=== PATIENT | female | born 1970 | race Caucasian/White ===

== ENCOUNTER 2019-05-04 19:01 | Inpatient (IN) ==
--- NOTE | 2019-05-04 20:00 | XRay Report ---
XR chest 1V portable CLINICAL HISTORY: 49 years-old Female presenting with sob, abnormal labs, eval for pna. TECHNIQUE: Portable upright AP view of the chest was obtained. COMPARISON: None. FINDINGS: Cardiac silhouette top normal in size. Elevation of the right hemidiaphragm. No focal opacity. Trace blunting of the right costophrenic angle. No large effusion or pneumothorax. Osseous structures meka l. Upper abdomen normal. IMPRESSION: 1. Blunting of the right costophrenic angle. A trace right pleural effusion cannot be excluded. Othe rwise no acute cardiopulmonary disease. PA and lateral views could be considered for further assessme nt if there is concern. Electronically signed by: Estrada Luz M.D. 05/04/2019 7:58 PM
[2019-05-04 20:21] LABS: Alanine Aminotransferase 25 U/L (12-78); Albumin Level 3.9 gm/dl (3.4-5.0); Aspartate Aminotransferase 25 U/L (15-37); BUN Creatinine Ratio 17.1 (10-20); Blood Urea Nitrogen 12 mg/dl (7-18); Calcium 8.8 mg/dl (8.5-10.1); Carbon Dioxide 26 mmol/L (21-32); Chloride 109 mmol/L (98-107); Creatinine Clr Calc Pharmacy 112.9 ml/min; Est GFR (African American) 119.6; Est GFR (Non-African American) 103.2; Glucose 125 mg/dl (70-99); Partial Thromboplastin Ratio 0.8; Partial Thromboplastin Time 21.9 Seconds (21.0-31.0); Potassium 3.9 mmol/L (3.5-5.1); Sodium 140 mmol/L (136-145)
[2019-05-04 20:25] LABS: Pregnancy Test, Serum Negative (Negative)
[2019-05-04 20:26] LABS: Albumin Globulin Ratio 0.9 (0.9-2); Alkaline Phosphatase 84 U/L (45-117); Bilirubin,Total 0.8 mg/dl (0.2-1); Globulin 4.1 gm/dl (2.5-4.0); Troponin I < 0.015 ng/ml (0-0.045)
[2019-05-04 20:37] LABS: Hematocrit (blood only) 28.8 % (37-47); Hemoglobin 7.8 g/dL (12.0-16.0); Mean Corpuscular Hemoglobin 18.1 pg (25-34); Mean Corpuscular Hgb Conc 27.1 g/dL (32-36); Mean Corpuscular Volume 66.7 fL (80-100); Mean Platelet Volume 8.3 fL (7.4-10.4); Platelet Count 284 K/uL (130-400); RDW Coefficient of Variation 17.9 % (11.5-14.5); RDW Standard Deviation 43.3 fL (36.4-46.3); Red Blood Count 4.32 M/uL (4.2-5.4); White Blood Count 7.41 K/uL (4.8-10.8)
[2019-05-04 20:40] LABS: Anisocytosis Present; Basophils # (auto) 0.09 K/uL (0-0.2); Basophils % (auto) 1.2 %; Eosinophils # (auto) 0.18 K/uL (0-0.5); Eosinophils % (auto) 2.4 %; Hypochromasia Present; Immature Granulocytes # (auto) 0.02 K/uL (0.00-0.02); Immature Granulocytes % (auto) 0.3 %; Lymphocytes # (auto) 2.11 K/uL (1.2-3.4); Lymphocytes % (auto) 28.5 %; Microcytosis Present; Monocytes # (auto) 0.45 K/uL (0.11-0.59); Monocytes % (auto) 6.1 %; Neutrophils # (auto) 4.56 K/uL (1.4-6.5); Neutrophils % (auto) 61.5 %; Ovalocytes 1+; Polychromasia 1+
--- NOTE | 2019-05-04 22:00 | History & Physical Report ---
Date of Service May 04, 2019 Assessment & Plan (1) Anemia: (2) Heme positive stool: Please refer to Dr. Kc's addendum for assessment and plan. History of Present Illness Chief Complaint: abnormal labs Primary Care Provider: NO PCP 49-year-old female who was sent to the ED for evaluation of abnormal labs. Patient is currently at [facility] for alcohol dependence. Patient arrived there on 04/30. She had routine labs drawn today to demonstrate anemia and she was sent to the ED. Patient reports that for the past several months, she has noted some exertional shortness of breath and lightheadedness however she attributed this to her chronic alcohol use. No chest pain or syncopal events. Patient reports she has frequent vomiting due to history of gastric bypass and that she eats too much food too quickly. She reports she has vomiting at least 2 times a week. She denies any hematemesis or coffee-ground emesis. No abdominal pain. She denies diarrhea, bright red bleeding per rectum, dark tarry stools. Patient reports a history of chronic anemia due to heavy menses, she is unsure of her baseline hemoglobin. She has been on iron pills in the past. No other recent illnesses, fevers, chills. She denies any urinary symptoms. Patient reports a history of Nur's esophagus on EGD from 2016. She denies heavy NSAID use. In the ED, Hgb is found to be 7.8 and rectal exam reveals guaiac positive stools. Patient is hemodynamically stable. Allergies Allergy/AdvReac Type Severity Reaction Status Date / Time No Known Allergies Allergy Verified 05/04/19 20:22 Home Medications Home Medications Medication Instructions Recorded Confirmed Type acetaminophen 650 mg PO QID PRN 05/04/19 05/04/19 History alum-mag hydroxide-simeth [Maalox 30 ml PO TID PRN 05/04/19 05/04/19 History Advanced] clonidine HCl 0.1 mg PO BID PRN 05/04/19 05/04/19 History folic acid 1 mg PO DAILY 05/04/19 05/04/19 History hydroxyzine pamoate [Vistaril] 50 mg PO TID PRN 05/04/19 05/04/19 History ibuprofen 600 mg PO QID PRN 05/04/19 05/04/19 History levetiracetam [Keppra] 500 mg PO BID 05/04/19 05/04/19 History loperamide [Imodium A-D] 2 mg PO DIRECTED PRN 05/04/19 05/04/19 History magnesium hydroxide [Milk of 30 ml PO DAILY PRN 05/04/19 05/04/19 History Magnesia] melatonin 5 mg PO HS PRN 05/04/19 05/04/19 History multivitamin 1 tab PO DAILY 05/04/19 05/04/19 History naloxone 0.4 mg IM DIRECTED PRN 05/04/19 05/04/19 History promethazine 25 mg PO QID PRN 05/04/19 05/04/19 History thiamine HCl (vitamin B1) 100 mg PO DAILY 05/04/19 05/04/19 History Past Med/Surg History Medical History Type 2 diabetes, diet controlled (Chronic) Barretts esophagus (Chronic) Alcoholism (Chronic) Anemia (Chronic) Surgical History History of gastric bypass (Chronic) Family History Brother Esophageal cancer Mother Diabetes Social History Preferred Language: [place] Communication Ability: Effective 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: No Beliefs That Will Affect Care: None Current Living Situation: Alone Feels Safe at Home: Yes Safety Concerns: Feels Safe At This Time Smoking Status: Current every day smoker Tobacco Type: cigarettes ; Cigarettes Per Day: 4 ; Hx Alcohol Use: Yes Alcohol type: beer and hard liquor Hx Substance Use: No Review of Systems Review of Systems: ROS per HPI, all other systems reviewed and negative Physical Exam Constitutional: WD/WN, vitals as above Eyes: PERRL, conjunctivae normal, anicteric sclerae ENMT: external ear and nose normal, oropharynx normal Respiratory: normal respiratory effort, lungs clear to auscultation Cardiovascular: Rate/Rhythm: regular rate and regular rhythm Vessels: normal peripheral pulses Extremities: no edema Gastrointestinal (Abdomen): normal bowel sounds, soft, nontender, no hepatosplenomegaly Musculoskeletal: no cyanosis or clubbing, extremities motor strength 5/5 Skin: no rashes, warm and dry Neurologic: PERRL, EOMI, accommodation nl, no face palsy, no dysarthria Psychiatric: Orientation: alert and oriented x 3 Affect: + tearful affect Results & Data Vital Signs (Past 12 Hours) Vital Signs Temp Pulse Resp BP Pulse Ox 05/04/19 21:00 80 24 157/89 H 97 05/04/19 20:01 90 17 164/95 H 97 05/04/19 19:42 100 05/04/19 19:04 36.6 C 96 H 16 193/79 H 100 Laboratory Results Short CBC 05/04/19 Range/Units 19:51 WBC 7.41 (4.8-10.8) K/uL Hgb 7.8 L (12.0-16.0) g/dL Hct 28.8 L (37-47) % Plt Count 284 (130-400) K/uL BMP 05/04/19 19:51 Sodium 140 Potassium 3.9 Chloride 109 H Carbon Dioxide 26 BUN 12 Creatinine 0.70 Glucose 125 H Calcium 8.8 Cardiac Enzymes 05/04/19 Range/Units 19:51 Troponin I < 0.015 (0-0.045) ng/ml Liver Function 05/04/19 Range/Units 19:51 Total Bilirubin 0.8 (0.2-1) mg/dl AST 25 (15-37) U/L ALT 25 (12-78) U/L Alkaline Phosphatase 84 (45-117) U/L Albumin 3.9 (3.4-5.0) gm/dl Diagnostic Findings CXR IMPRESSION: 1. Blunting of the right costophrenic angle. A trace right pleural effusion cannot be excluded. Otherwise no acute cardiopulmonary disease. PA and lateral views could be considered for further assessment if there is concern. Code Status & VTE Plan VTE Prophylaxis Plan VTE Prophylaxis will be ordered: Yes Supervising Physician Co-Signing Physician Notes IM ATTENDING : Patient seen and examined. History obtained from patient and records. Preceding documentation by LINDSAY Mata reviewed. FINAL ASSESSMENT AND PLAN as follows : Dizziness Multifactorial : Symptomatic anemia hx chronic anemia with baseline unknown to patient (likely secondary to heavy menses, iron absorption issues following gastric bypass) Patient gives history of exertional shortness of breath the last few months. Rule out cardiac dysfunction/pulmonary hypertension as cause of exertional S OB Hypertension, elevated secondary to anxiety Past history ACEI intake Occult GI bleed Multifactorial : hx Nur's esophagus, patient noncompliant with home PPI regimen hx hemorrhoids as per patient Alcohol abuse Ongoing tobacco abuse Medical telemetry Transfuse PRBC to maintain hemoglobin greater than 8 and/or for symptomatic anemia TTE RE exertional S OB Anemia work-up Retrieve recent outpatient hemoglobin result from [facility]. Outpatient [facility] GI work-up for occult GI bleed as per patient preference. Resume home PPI regimen for Nur's esophagus. Patient counseled to avoid NSAIDs. Resume prior home lisinopril Rx if BP uncontrolled. DT precautions continue Keppra alcohol withdrawal seizure prophylaxis initiated at [facility]. Ativan as needed for agitation related to alcohol withdrawal. ISS BG goal 1 40-1 80, may need basal insulin, check hemoglobin A1c Nicotine patch PRN DVT prophylaxis. SCDs RE occult GI bleed Full code
[2019-05-04 22:01] LABS: Magnesium 2.2 mg/dl (1.8-2.4); Thyroid Stimulating Hormone 1.17 uIu/ml (0.300-4.500)
--- NOTE | 2019-05-04 22:38 | Emergency Department Note ---
Entered by Lise Liu acting as a scribe for Wagner Wong MD History of Present Illness General Chief complaint: Abnormal Labs/Diagnostic Testing Stated complaint: LOW HEMOGLOBIN Source: patient Mode of arrival: ambulatory Limitations: no limitations History of Present Illness Onset (ago): day(s) 1 Radiation: non-radiation Pain Consistency: + constant Maximum Pain Intensity: 6 Relieved By: + none Exacerbated By: + none Associated symptoms: + shortness of breath; no cough (or cold symptoms) Treatments prior to arrival: none The patient is a 49 year old female who presents to the ED with complaints of abnormal lab results. She states she has been experiencing lightheadedness for "several months". Her symptoms are worse with standing and movement. For the past month, she has experienced some labored breathing. She was recently admitted to [facility] for a history of alcohol abuse and states she was placed on Librium and Valium. This morning, she had routine blood work and was told her Hemoglobin is low. She denies any recent bloody or black and tarry stools. She admits she has been anemic in the past from heavy menstrual periods. Her LMP was last month and heavy. She does not take daily blood thinners. She denies any recent cough or cold symptoms. Home Medications Home Medications Medication Instructions Recorded Confirmed Type acetaminophen 650 mg PO QID PRN 05/04/19 05/04/19 History alum-mag hydroxide-simeth [Maalox 30 ml PO TID PRN 05/04/19 05/04/19 History Advanced] clonidine HCl 0.1 mg PO BID PRN 05/04/19 05/04/19 History folic acid 1 mg PO DAILY 05/04/19 05/04/19 History hydroxyzine pamoate [Vistaril] 50 mg PO TID PRN 05/04/19 05/04/19 History ibuprofen 600 mg PO QID PRN 05/04/19 05/04/19 History levetiracetam [Keppra] 500 mg PO BID 05/04/19 05/04/19 History loperamide [Imodium A-D] 2 mg PO DIRECTED PRN 05/04/19 05/04/19 History magnesium hydroxide [Milk of 30 ml PO DAILY PRN 05/04/19 05/04/19 History Magnesia] melatonin 5 mg PO HS PRN 05/04/19 05/04/19 History multivitamin 1 tab PO DAILY 05/04/19 05/04/19 History naloxone 0.4 mg IM DIRECTED PRN 05/04/19 05/04/19 History promethazine 25 mg PO QID PRN 05/04/19 05/04/19 History thiamine HCl (vitamin B1) 100 mg PO DAILY 05/04/19 05/04/19 History Allergies Allergy/AdvReac Type Severity Reaction Status Date / Time No Known Allergies Allergy Verified 05/04/19 20:22 Past Med/Surg History Medical History Type 2 diabetes, diet controlled (Chronic) Barretts esophagus (Chronic) Alcoholism (Chronic) Anemia (Chronic) Surgical History History of gastric bypass (Chronic) Family History Brother Esophageal cancer Mother Diabetes Social History Preferred Language: Kosovan Feels Safe at Home: Yes Smoking Status: Current every day smoker Hx Alcohol Use: Yes (Recently admitted to [facility] for alcohol dependence on 04/30.) Review of Systems See HPI for pertinent positives & negatives. and A total of 10 systems reviewed and were otherwise negative Physical Exam Vital Signs Vital Signs - 24 hr 05/04/19 19:04 05/04/19 19:42 05/04/19 20:01 Temperature 36.6 C Temperature Source Oral Sepsis Recent Fever Within 48 Hours No Sepsis New/Unexplained Change in Mental Status No Sepsis Action Taken by Nursing No Action Required Pulse Rate 96 H 90 Pulse Rate from SpO2 Sensor 90 Respiratory Rate 16 17 Blood Pressure 193/79 H 164/95 H Blood Pressure Mean 117 118 Pulse Oximetry 100 100 97 Oxygen Delivery Method Room Air Room Air 05/04/19 21:00 05/04/19 22:00 Temperature Temperature Source Sepsis Recent Fever Within 48 Hours Sepsis New/Unexplained Change in Mental Status Sepsis Action Taken by Nursing Pulse Rate 80 80 Pulse Rate from SpO2 Sensor 80 80 Respiratory Rate 24 16 Blood Pressure 157/89 H 157/87 H Blood Pressure Mean 111 110 Pulse Oximetry 97 98 Oxygen Delivery Method Constitutional: Vital signs reviewed. Eyes: Pupils are equal round reactive to light. Conjunctiva are noninjected. ENT: Pharynx is clear without erythema or exudate. Mucous membranes are moist. Neck supple without meningeal signs. Respiratory: Clear to auscultation bilaterally. Breath sounds are equal bilaterally. Cardiovascular: Regular rate and rhythm. No rubs or gallops. GI: Soft, nondistended and nontender. Bowel sounds are present. Rectal: Guaiac positive light brown stool. Musculoskeletal: No peripheral edema. No lower extremity tenderness. Integumentary: No cyanosis. Neurological: The patient is awake and alert. No focal deficits. Psychiatric: Normal affect. Course 1921: The patient was evaluated in room C4 and a complete history and physical were performed. 2049: I reevaluated the patient. I discussed her test results and my recommendation she remain in the hospital for further evaluation and management. She is agreeable with the plan. 2054: I discussed the patients case with Elmo Reynolds. The patient will be further evaluated. Consultations Consultation #1: I discussed the patients case with Elmo Reynolds. The patient will be further evaluated. Time: 20:55 Medical Decision Making Differential Diagnosis The differential diagnoses considered include GI bleed, gastritis, colon mass, anemia and menorrhagia. Medical Records Attestation: I reviewed the patient's medical records. I did perform a limited focused review of portions of the patient's old chart on the electronic medical record. The patient has had no recent pertinent visits to this hospital. Home Medications Current Medication List: was personally reviewed by me Laboratory Data Attestation: I reviewed the patient's lab results. Result diagrams: 05/04/19 19:51 05/04/19 19:51 Lab Results 05/04/19 05/04/19 05/04/19 Range/Units 19:51 19:51 19:51 WBC 7.41 (4.8-10.8) K/uL RBC 4.32 (4.2-5.4) M/uL Hgb 7.8 L (12.0-16.0) g/dL Hct 28.8 L (37-47) % MCV 66.7 L (80-100) fL MCH 18.1 L (25-34) pg MCHC 27.1 L (32-36) g/dL RDW Std Deviation 43.3 (36.4-46.3) fL RDW Coeff of Varinder 17.9 H (11.5-14.5) % Plt Count 284 (130-400) K/uL MPV 8.3 (7.4-10.4) fL Immature Gran % (Auto) 0.3 % Neut % (Auto) 61.5 % Lymph % (Auto) 28.5 % Dodge % (Auto) 6.1 % Eos % (Auto) 2.4 % Baso % (Auto) 1.2 % Immature Gran # (Auto) 0.02 (0.00-0.02) K/uL Neut # (Auto) 4.56 (1.4-6.5) K/uL Lymph # (Auto) 2.11 (1.2-3.4) K/uL Dodge # (Auto) 0.45 (0.11-0.59) K/uL Eos # (Auto) 0.18 (0-0.5) K/uL Baso # (Auto) 0.09 (0-0.2) K/uL Polychromasia 1+ Hypochromasia Present Anisocytosis Present Microcytosis Present Ovalocytes 1+ PT (9.0-12.0) Seconds INR (0.9-1.1) APTT (21.0-31.0) Seconds PTT Ratio Sodium 140 (136-145) mmol/L Potassium 3.9 (3.5-5.1) mmol/L Chloride 109 H (98-107) mmol/L Carbon Dioxide 26 (21-32) mmol/L Anion Gap 5.0 (3-11) BUN 12 (7-18) mg/dl Creatinine 0.70 (0.6-1.2) mg/dl Est Cr Clr Drug Dosing 112.9 ml/min Est GFR ( Amer) 119.6 Est GFR (Non-Af Amer) 103.2 BUN/Creatinine Ratio 17.1 (10-20) Glucose 125 H (70-99) mg/dl Calcium 8.8 (8.5-10.1) mg/dl Magnesium (1.8-2.4) mg/dl Total Bilirubin 0.8 (0.2-1) mg/dl AST 25 (15-37) U/L ALT 25 (12-78) U/L Alkaline Phosphatase 84 (45-117) U/L Troponin I < 0.015 (0-0.045) ng/ml Total Protein 8.0 (6.4-8.2) gm/dl Albumin 3.9 (3.4-5.0) gm/dl Globulin 4.1 H (2.5-4.0) gm/dl Albumin/Globulin Ratio 0.9 (0.9-2) TSH (0.300-4.500) uIu/ml HCG, Qual Negative (Negative) Blood Type Antibody Screen 05/04/19 05/04/19 05/04/19 Range/Units 19:51 19:51 19:51 WBC (4.8-10.8) K/uL RBC (4.2-5.4) M/uL Hgb (12.0-16.0) g/dL Hct (37-47) % MCV (80-100) fL MCH (25-34) pg MCHC (32-36) g/dL RDW Std Deviation (36.4-46.3) fL RDW Coeff of Varinder (11.5-14.5) % Plt Count (130-400) K/uL MPV (7.4-10.4) fL Immature Gran % (Auto) % Neut % (Auto) % Lymph % (Auto) % Dodge % (Auto) % Eos % (Auto) % Baso % (Auto) % Immature Gran # (Auto) (0.00-0.02) K/uL Neut # (Auto) (1.4-6.5) K/uL Lymph # (Auto) (1.2-3.4) K/uL Dodge # (Auto) (0.11-0.59) K/uL Eos # (Auto) (0-0.5) K/uL Baso # (Auto) (0-0.2) K/uL Polychromasia Hypochromasia Anisocytosis Microcytosis Ovalocytes PT 10.0 (9.0-12.0) Seconds INR 1.0 (0.9-1.1) APTT 21.9 (21.0-31.0) Seconds PTT Ratio 0.8 Sodium (136-145) mmol/L Potassium (3.5-5.1) mmol/L Chloride (98-107) mmol/L Carbon Dioxide (21-32) mmol/L Anion Gap (3-11) BUN (7-18) mg/dl Creatinine (0.6-1.2) mg/dl Est Cr Clr Drug Dosing ml/min Est GFR ( Amer) Est GFR (Non-Af Amer) BUN/Creatinine Ratio (10-20) Glucose (70-99) mg/dl Calcium (8.5-10.1) mg/dl Magnesium 2.2 (1.8-2.4) mg/dl Total Bilirubin (0.2-1) mg/dl AST (15-37) U/L ALT (12-78) U/L Alkaline Phosphatase (45-117) U/L Troponin I (0-0.045) ng/ml Total Protein (6.4-8.2) gm/dl Albumin (3.4-5.0) gm/dl Globulin (2.5-4.0) gm/dl Albumin/Globulin Ratio (0.9-2) TSH 1.170 (0.300-4.500) uIu/ml HCG, Qual (Negative) Blood Type O Negative Antibody Screen NEGATIVE Imaging Data Radiologist's Impression: Radiology results as stated below per my review and the radiologist's interpretation: XR chest 1V portable CLINICAL HISTORY: 49 years-old Female presenting with sob, abnormal labs, eval for pna. TECHNIQUE: Portable upright AP view of the chest was obtained. COMPARISON: None. FINDINGS: Cardiac silhouette top normal in size. Elevation of the right hemidiaphragm. No focal opacity. Trace blunting of the right costophrenic angle. No large effusion or pneumothorax. Osseous structures normal. Upper abdomen normal. IMPRESSION: 1. Blunting of the right costophrenic angle. A trace right pleural effusion cannot be excluded. Otherwise no acute cardiopulmonary disease. PA and lateral views could be considered for further assessment if there is concern. Electronically signed by: Estrada Luz M.D. 05/04/2019 7:58 PM ECG Data Attestation: I personally reviewed and interpreted this ECG as follows: Indication: SOB/dyspnea Rate (beats per minute): 80 Rhythm: normal sinus Findings: no PVC and no ST elevation Blood Pressure Blood Pressure Findings: Elevated blood pressure Blood Pressure Disposition: further management by hospitalist [facility] Narrative I did evaluate the patient as noted above. The patient is presenting with symptomatic anemia. She has had headedness and shortness of breath for the past several months. She is found to have a hemoglobin of 7.6 today. She does state that she has had anemia in the past from heavy periods that she does still suffer from heavy periods. She has never required a transfusion or became symptomatic from it. I did perform a rectal examination and she did have guaiac positive brown stool without melena or gross blood. IV access was established. The patient was placed on a continuous monitoring and evaluation advisor. I did order and personally review the patient's 12-lead EKG as described above. Twelve-lead EKG is unremarkable without signs of acute ischemia. I did order and personally reviewed the images of the patient's chest x-ray as described above. There is no evidence of pneumonia. There is some question of a possible pleural effu duane. I did order a type and screen. I did order and review the patient's blood work as noted in the electronic medical record. She does have a hemoglobin of 7.8. Because of her guaiac positive stool and symptomatic anemia I did feels hospitalization was indicated for repeat H&H's and GI evaluation. I did discuss the case with the hospitalist and hospice case manager. I did discuss the plan with the patient was agreeable. Impression & Plan Symptomatic anemia, GI bleed, Poorly-controlled hypertension, Alcohol dependence Discharge Plan Visit Data Chief Complaint: Abnormal Labs/Diagnostic Testing Stated Complaint: LOW HEMOGLOBIN ED Provider: Wagner Wong Discharge Problem: Symptomatic anemia, GI bleed, Poorly-controlled hypertension, Alcohol dependenc e Patient Disposition: Being Evaluated by Hospitalist Forms Stand Alone Forms: My [facility] Prescriptions Prescriptions: No Action multivitamin Tablet 1 tab PO DAILY RF: 0 clonidine HCl 0.1 mg Tablet 0.1 mg PO BID PRN (Reason: Unknown) RF: 0 acetaminophen 325 mg Tablet 650 mg PO QID PRN (Reason: LOS) RF: 0 levetiracetam [Keppra] 500 mg Tablet 500 mg PO BID RF: 0 loperamide [Imodium A-D] 2 mg Tablet 2 mg PO DIRECTED PRN (Reason: Diarrhea) RF: 0 thiamine HCl (vitamin B1) 100 mg Tablet 100 mg PO DAILY RF: 0 hydroxyzine pamoate [Vistaril] 50 mg Capsule 50 mg PO TID PRN (Reason: Anxiety) RF: 0 magnesium hydroxide [Milk of Magnesia] 400 mg/5 mL Suspension 30 ml PO DAILY PRN (Reason: LOS) RF: 0 promethazine 25 mg Tablet 25 mg PO QID PRN (Reason: Nausea And Vomiting) RF: 0 folic acid 1 mg Tablet 1 mg PO DAILY RF: 0 alum-mag hydroxide-simeth [Maalox Advanced] 200-200-20 mg/5 mL Suspension 30 ml PO TID PRN (Reason: LOS) RF: 0 ibuprofen 600 mg Tablet 600 mg PO QID PRN (Reason: LOS) RF: 0 naloxone 0.4 mg/mL Syringe 0.4 mg IM DIRECTED PRN (Reason: Sedation) RF: 0 melatonin 5 mg Tablet 5 mg PO HS PRN (Reason: Sleep) RF: 0 Referrals Referrals: PCP,NO [Primary Care Provider] - The scribe's documentation has been prepared under my direction and personally reviewed by me in its entirety. I confirm that the note above accurately reflects all work, treatment, procedures, and medical decision making performed by me.
[2019-05-04 22:49] LABS: Hematocrit (blood only) 26.6 % (37-47)
[2019-05-04] MEDS ORDERED: ATIVAN IV ALCOHOL WITHDRAWL IV SCH (23:56)
[2019-05-04] MEDS ORDERED: GLUCOSE 10 TABS/TUBE PO PRN (23:56)
[2019-05-04] MEDS ORDERED: CARBOHYDRATES FOR HYPOGLYCEMIA PO PRN (23:56)
[2019-05-04] MEDS ORDERED: SODIUM CHLORIDE 0.9% 250 ML IV PRN (23:56)
[2019-05-04] MEDS ORDERED: GLUCOSE 40% GEL 15 GM TUBE PO PRN (23:56)
[2019-05-04] MEDS ORDERED: DEXTROSE 50% 50 ML SYRINGE IV PRN (23:56)
[2019-05-04] MEDS ORDERED: ACETAMINOPHEN 325 MG TAB PO PRN (23:56)
[2019-05-04] MEDS ORDERED: PROMETHAZINE HCL 12.5 MG in SODIUM CHLORIDE 0.9% 50 ML IV PRN (23:56)
[2019-05-04] MEDS ORDERED: LISINOPRIL 2.5 MG TAB PO ONE (23:56)
[2019-05-04] MEDS ORDERED: LORazepam 2 MG/4 ML VIAL IV PRN (23:56)
[2019-05-04] MEDS ORDERED: NITROGLYCERIN SL 0.4 MG/TAB TAB SL PRN (23:56)
[2019-05-04] MEDS ORDERED: LORazepam 1 MG/2 ML VIAL IV PRN (23:56)
[2019-05-04] MEDS ORDERED: GLUCAGON FOR INJ 1 MG VIAL SQ PRN (23:56)
[2019-05-04] MEDS ORDERED: LORazepam 3 MG/6 ML VIAL IV PRN (23:56)
[2019-05-05] MEDS: INSULIN ASPART 100 UNITS/ML 3 ML PEN SC SCH ×5 (00:28→20:49)
[2019-05-05] MEDS: PANTOprazole 40 MG TAB PO SCH ×3 (00:32→20:55)
[2019-05-05] MEDS: levETIRAcetam 500 MG TAB PO SCH ×3 (02:15→20:55)
[2019-05-05 06:23] LABS: Estimated Average Glucose 117 mg/dl; Hemoglobin A1C 5.7 % (4.5-5.6)
[2019-05-05 07:02] LABS: BUN Creatinine Ratio 15.2 (10-20); Calcium 8.3 mg/dl (8.5-10.1); Creatinine Clr Calc Pharmacy 133.5 ml/min; Est GFR (African American) 126.5; Est GFR (Non-African American) 109.1; Potassium 3.5 mmol/L (3.5-5.1)
[2019-05-05 07:09] LABS: Ferritin 1.9 ng/ml (8-388)
[2019-05-05 07:16] LABS: Hematocrit (blood only) 28.8 % (37-47); Mean Corpuscular Hemoglobin 18.8 pg (25-34); Mean Corpuscular Hgb Conc 27.8 g/dL (32-36); Mean Corpuscular Volume 67.6 fL (80-100); Platelet Count 247 K/uL (130-400); RDW Coefficient of Variation 18.9 % (11.5-14.5); RDW Standard Deviation 46.5 fL (36.4-46.3); Red Blood Count 4.26 M/uL (4.2-5.4); White Blood Count 5.67 K/uL (4.8-10.8)
[2019-05-05 07:17] LABS: Basophils # (auto) 0.06 K/uL (0-0.2); Basophils % (auto) 1.1 %; Eosinophils # (auto) 0.22 K/uL (0-0.5); Eosinophils % (auto) 3.9 %; Hypochromasia Present; Immature Granulocytes # (auto) 0.01 K/uL (0.00-0.02); Immature Granulocytes % (auto) 0.2 %; Lymphocytes # (auto) 1.84 K/uL (1.2-3.4); Lymphocytes % (auto) 32.5 %; Microcytosis Present; Monocytes # (auto) 0.57 K/uL (0.11-0.59); Monocytes % (auto) 10.1 %; Neutrophils # (auto) 2.97 K/uL (1.4-6.5); Neutrophils % (auto) 52.2 %; Ovalocytes 2+; Reticulocyte % 1.7 % (0.5-2.0); Reticulocytes # 0.07 10^6/uL (0.02-0.10)
[2019-05-05] MEDS: FOLIC ACID 1 MG TAB PO SCH (08:45)
[2019-05-05] MEDS: THIAMINE HCL 100 MG TAB PO SCH (08:45)
[2019-05-05] MEDS: MULTIVITAMIN TAB PO SCH (08:45)
[2019-05-05] MEDS: FERROUS SULFATE 325 MG TAB PO SCH ×2 (08:51→18:14)
[2019-05-05] MEDS ORDERED: levETIRAcetam 500 MG TAB PO SCH (09:00)
[2019-05-05 09:16] LABS: Folate (Folic Acid) 8.3 ng/ml (>5.38)
[2019-05-05 12:19] LABS: Hematocrit (blood only) 29.4 % (37-47); Hemoglobin 8.2 g/dL (12.0-16.0)
[2019-05-05] MEDS ORDERED: SODIUM CHLORIDE 0.9% 250 ML IV PRN (13:08)
--- NOTE | 2019-05-05 13:11 | Hospitalist Progress Note ---
Date of Service May 05, 2019 Assessment & Plan (1) Anemia: Symptomatic anemia r/o Upper GI Bleed, history of gastric bypass Menorrhagia Iron Deficiency Hg 7.0 on admission s/p 1 unit pRBC given, Hg increased to 8, still symptomatic will order 1 more unit Pantoprazole 40mg BID started, GI consulted will need outpatient [employer] ff up Fe 17, Ferrous gluconate started other studies: echo- EF 65-70%, borderline concentric LVH, left atrium mildly dilated Hypertension, elevated secondary to anxiety improved continue Lisinopril monitor Alcohol abuse Ongoing tobacco abuse DT precautions continue Keppra alcohol withdrawal seizure prophylaxis initiated at [facility]. Ativan as needed for agitation related to alcohol withdrawal. Pre-DM A1c 5.7 dietary changes monitor as outpatient DVT prophylaxis. SCDs RE occult GI bleed Disposition pending anticipate d/c to [facility] when medically stable Subjective ff up for symptomatic anemia seen resting in bed, comfortable states she feels about the same as yesterday still having some lightheadedness, weakness when ambulating in the bathroom denies chest pain, dyspnea no abdominal pain ,nausea/vomiting no melena/hematochezia reports heavy, irregular menses denies other symptoms Review of Systems Review of Systems: All systems reviewed & are unremarkable except as noted in HPI & below Physical Exam Physical Exam: General- oriented x 3, not in distress, speaks in sentences with no effort or accessory muscle use Head- atraumatic Eyes- PERRL, EOMI, anicteric ENT- oropharynx clear Neck- supple, no JVD, no adenopathy, no thyromegaly; carotids +2/2, no bruits appreciated Lungs- clear to auscultation bilaterally, no rales/wheezes Heart- normal rate, regular rhythm; no murmur, no gallop, no rub appreciated Abdomen- normal bowel sounds, nondistended, soft, nontender, no masses or hepatosplenomegaly Extremities- no pretibial edema, no calf tenderness; peripheral pulses intact Neuro- alert, oriented x 3; CN 2-12 grossly intact; motor 5/5 bilaterally;sensation 100% on all extremities; no other gross focal neurologic deficits Skin- warm & dry Results & Data Vital Signs (Past 12 Hours) Vital Signs Temp Pulse Pulse Resp BP BP BP 05/05/19 12:12 36.4 C L 73 20 122/72 08/30/19 07:54 36.7 C 73 20 99/64 L 05/05/19 07:40 72 05/05/19 03:43 36.8 C 69 16 116/73 05/05/19 03:40 36.9 C 79 18 110/66 05/05/19 02:40 36.5 C 76 18 124/75 05/05/19 02:10 36.9 C 76 18 129/76 05/05/19 01:55 36.5 C 76 18 137/83 05/05/19 01:38 36.8 C 84 18 122/62 Pulse Ox 05/05/19 12:12 100 05/05/19 07:54 99 05/05/19 07:40 05/05/19 03:43 99 05/05/19 03:40 99 05/05/19 02:40 100 05/05/19 02:10 100 05/05/19 01:55 99 05/05/19 01:38 100 Laboratory Results Laboratory Results - last 24 hr 05/04/19 05/04/19 05/04/19 19:51 19:51 19:51 WBC 7.41 RBC 4.32 Hgb 7.8 L Hct 28.8 L MCV 66.7 L MCH 18.1 L MCHC 27.1 L RDW Std Deviation 43.3 RDW Coeff of Varinder 17.9 H Plt Count 284 MPV 8.3 Immature Gran % (Auto) 0.3 Neut % (Auto) 61.5 Lymph % (Auto) 28.5 [place] % (Auto) 6.1 Eos % (Auto) 2.4 Baso % (Auto) 1.2 Reticulocyte % (Auto) Immature Gran # (Auto) 0.02 Neut # (Auto) 4.56 Lymph # (Auto) 2.11 [place] # (Auto) 0.45 Eos # (Auto) 0.18 Baso # (Auto) 0.09 Reticulocyte # Polychromasia 1+ Hypochromasia Present Anisocytosis Present Microcytosis Present Ovalocytes 1+ PT INR APTT PTT Ratio Sodium 140 Potassium 3.9 Chloride 109 H Carbon Dioxide 26 Anion Gap 5.0 BUN 12 Creatinine 0.70 Est Cr Clr Drug Dosing 112.9 Est GFR ( Amer) 119.6 Est GFR (Non-Af Amer) 103.2 BUN/Creatinine Ratio 17.1 Glucose 125 H POC Glucose Estimat Average Glucose Hemoglobin A1c Calcium 8.8 Magnesium Iron TIBC Transferrin Ferritin Total Bilirubin 0.8 AST 25 ALT 25 Alkaline Phosphatase 84 Troponin I < 0.015 Total Protein 8.0 Albumin 3.9 Globulin 4.1 H Albumin/Globulin Ratio 0.9 Vitamin B12 Folate TSH HCG, Qual Negative Nasal Screen MRSA (PCR) Blood Type Blood Type Recheck Antibody Screen Crossmatch 05/04/19 05/04/19 05/04/19 19:51 19:51 19:51 WBC RBC Hgb Hct MCV MCH MCHC RDW Std Deviation RDW Coeff of Varinder Plt Count MPV Immature Gran % (Auto) Neut % (Auto) Lymph % (Auto) [place] % (Auto) Eos % (Auto) Baso % (Auto) Reticulocyte % (Auto) Immature Gran # (Auto) Neut # (Auto) Lymph # (Auto) [place] # (Auto) Eos # (Auto) Baso # (Auto) Reticulocyte # Polychromasia Hypochromasia Anisocytosis Microcytosis Ovalocytes PT 10.0 INR 1.0 APTT 21.9 PTT Ratio 0.8 Sodium Potassium Chloride Carbon Dioxide Anion Gap BUN Creatinine Est Cr Clr Drug Dosing Est GFR ( Amer) Est GFR (Non-Af Amer) BUN/Creatinine Ratio Glucose POC Glucose Estimat Average Glucose 117 Hemoglobin A1c 5.7 H Calcium Magnesium Iron TIBC Transferrin Ferritin Total Bilirubin AST ALT Alkaline Phosphatase Troponin I Total Protein Albumin Globulin Albumin/Globulin Ratio Vitamin B12 Folate TSH HCG, Qual Nasal Screen MRSA (PCR) Blood Type O Negative Blood Type Recheck Antibody Screen NEGATIVE Crossmatch See Detail 05/04/19 05/04/19 05/05/19 19:51 22:24 00:19 WBC RBC Hgb 7.0 L Hct 26.6 L MCV MCH MCHC RDW Std Deviation RDW Coeff of Varinder Plt Count MPV Immature Gran % (Auto) Neut % (Auto) Lymph % (Auto) [place] % (Auto) Eos % (Auto) Baso % (Auto) Reticulocyte % (Auto) Immature Gran # (Auto) Neut # (Auto) Lymph # (Auto) [place] # (Auto) Eos # (Auto) Baso # (Auto) Reticulocyte # Polychromasia Hypochromasia Anisocytosis Microcytosis Ovalocytes PT INR APTT PTT Ratio Sodium Potassium Chloride Carbon Dioxide Anion Gap BUN Creatinine Est Cr Clr Drug Dosing Est GFR ( Amer) Est GFR (Non-Af Amer) BUN/Creatinine Ratio Glucose POC Glucose 110 H Estimat Average Glucose Hemoglobin A1c Calcium Magnesium 2.2 Iron TIBC Transferrin Ferritin Total Bilirubin AST ALT Alkaline Phosphatase Troponin I Total Protein Albumin Globulin Albumin/Globulin Ratio Vitamin B12 Folate TSH 1.170 HCG, Qual Nasal Screen MRSA (PCR) Blood Type Blood Type Recheck Antibody Screen Crossmatch 05/05/19 05/05/19 05/05/19 00:31 06:12 06:12 WBC 5.67 RBC 4.26 Hgb 8.0 L Hct 28.8 L MCV 67.6 L MCH 18.8 L MCHC 27.8 L RDW Std Deviation 46.5 H RDW Coeff of Varinder 18.9 H Plt Count 247 MPV 9.0 Immature Gran % (Auto) 0.2 Neut % (Auto) 52.2 Lymph % (Auto) 32.5 [place] % (Auto) 10.1 Eos % (Auto) 3.9 Baso % (Auto) 1.1 Reticulocyte % (Auto) 1.7 Immature Gran # (Auto) 0.01 Neut # (Auto) 2.97 Lymph # (Auto) 1.84 [place] # (Auto) 0.57 Eos # (Auto) 0.22 Baso # (Auto) 0.06 Reticulocyte # 0.07 Polychromasia Hypochromasia Present Anisocytosis Microcytosis Present Ovalocytes 2+ PT INR APTT PTT Ratio Sodium 141 Potassium 3.5 Chloride 110 H Carbon Dioxide 25 Anion Gap 6.0 BUN 9 Creatinine 0.59 L Est Cr Clr Drug Dosing 133.5 Est GFR ( Amer) 126.5 Est GFR (Non-Af Amer) 109.1 BUN/Creatinine Ratio 15.2 Glucose 90 POC Glucose Estimat Average Glucose Hemoglobin A1c Calcium 8.3 L Magnesium Iron 17 L TIBC 449 Transferrin 347 Ferritin 1.9 L Total Bilirubin AST ALT Alkaline Phosphatase Troponin I Total Protein Albumin Globulin Albumin/Globulin Ratio Vitamin B12 Folate TSH HCG, Qual Nasal Screen MRSA (PCR) Blood Type Blood Type Recheck O Negative Antibody Screen Crossmatch 05/05/19 05/05/19 05/05/19 06:12 07:40 11:56 WBC RBC Hgb Hct MCV MCH MCHC RDW Std Deviation RDW Coeff of Varinder Plt Count MPV Immature Gran % (Auto) Neut % (Auto) Lymph % (Auto) [place] % (Auto) Eos % (Auto) Baso % (Auto) Reticulocyte % (Auto) Immature Gran # (Auto) Neut # (Auto) Lymph # (Auto) [place] # (Auto) Eos # (Auto) Baso # (Auto) Reticulocyte # Polychromasia Hypochromasia Anisocytosis Microcytosis Ovalocytes PT INR APTT PTT Ratio Sodium Potassium Chloride Carbon Dioxide Anion Gap BUN Creatinine Est Cr Clr Drug Dosing Est GFR ( Amer) Est GFR (Non-Af Amer) BUN/Creatinine Ratio Glucose POC Glucose 114 H 110 H Estimat Average Glucose Hemoglobin A1c Calcium Magnesium Iron TIBC Transferrin Ferritin Total Bilirubin AST ALT Alkaline Phosphatase Troponin I Total Protein Albumin Globulin Albumin/Globulin Ratio Vitamin B12 547 Folate 8.30 TSH HCG, Qual Nasal Screen MRSA (PCR) Blood Type Blood Type Recheck Antibody Screen Crossmatch 05/05/19 05/05/19 11:59 Unknown WBC RBC Hgb 8.2 L Hct 29.4 L MCV MCH MCHC RDW Std Deviation RDW Coeff of Varinder Plt Count MPV Immature Gran % (Auto) Neut % (Auto) Lymph % (Auto) [place] % (Auto) Eos % (Auto) Baso % (Auto) Reticulocyte % (Auto) Immature Gran # (Auto) Neut # (Auto) Lymph # (Auto) [place] # (Auto) Eos # (Auto) Baso # (Auto) Reticulocyte # Polychromasia Hypochromasia Anisocytosis Microcytosis Ovalocytes PT INR APTT PTT Ratio Sodium Potassium Chloride Carbon Dioxide Anion Gap BUN Creatinine Est Cr Clr Drug Dosing Est GFR ( Amer) Est GFR (Non-Af Amer) BUN/Creatinine Ratio Glucose POC Glucose Estimat Average Glucose Hemoglobin A1c Calcium Magnesium Iron TIBC Transferrin Ferritin Total Bilirubin AST ALT Alkaline Phosphatase Troponin I Total Protein Albumin Globulin Albumin/Globulin Ratio Vitamin B12 Folate TSH HCG, Qual Nasal Screen MRSA (PCR) Negative Blood Type Blood Type Recheck Antibody Screen Crossmatch
--- NOTE | 2019-05-05 13:36 | Gastrointestinal Consultation ---
Date of Consultation May 05, 2019 Assessment & Plan (1) History of gastric bypass: 49 year old female with obesity s/p RYGB not following w/ GI nutrition, Nur's not on acid suppressive therapy due to non-compliance who presents from rehabilitation facility w/ abnormal labs w/ HGB 7. GI asked to evaluate given anemia, heme + stools. She is awake, alert and oriented answering questions appropriately. She has just completed a regular breakfast, lunch tray and a banana as a snack and denies any abdominal pain. She adamantly denies any black/bloody stools/emesis currently or prior to arrival. Denies any other bruising/bleeding. DDX discussed: likely multifactorial due to dietary and vitamin noncompliance in a post-op pt - Can continue diet as tolerated - Would recommend PPI 40 mg daily indefinitely - No urgent indication for endoscopic evaluation - S/P RBC x 1 unit - No evidence of active GIB - VSS - Trend HGB - Transfuse PRN per primary service - Monitor and document GI output - She should re-establish with her regular OP GI nutrition providers in [place] - She should have an EGD/Colonoscopy as an OP in [place] to evaluate for anemia, heme + stools Will sign off. Thank you for allowing us to participate in the care of this patient. Please call with any acute changes, questions or concerns. Please see addendum below with additional recommendation from my supervising physician. Present on Admission?: Yes Supervising Physician Co-Signing Physician Notes I saw and evaluated the patient. We are consulted for evaluation of iron defici ency anemia. Of note the patient did have a gastric bypass procedure 3 years ago in [place] at [facility]. The patient denies use of iron and notes that she does drink heavily and was recently in rehab. She denies having any melena, dark sticky stool, hematemesis abdominal discomfort or hematochezia. Physical examination Pleasant appearing female in no obvious distress No abdominal distention noted Impression: Patient with a history of what appears to be iron deficiency anemia likely related to her prior gastric bypass surgery. Recommendations Begin an iron supplement Patient should have an outpatient upper endoscopy and colonoscopy performed. 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 GI to sign off Please call with any additional questions or concerns History of Present Illness Reason for Consultation: concern for GIB Requesting Physician: Noemí Attending Physician: Jagdish Dowd MD History of Present Illness 49 year old female with history of T2DM, chronic anemia w/ unknown baseline HGB, Nur's esophagus, ongoing ETOH abuse, obesity s/p RYGB who presented trhough the ED for OP treatment facility for abnormal labs w/ anemia. Pt was seen and evaluated, chart reviewed. She notes that she feels well from a GI standpoint. No abdominal pain, no nausea/vomiting. Just finished breakfast, lunch. Regular consistency. She does sometimes have issues with pain/vomiting when she does not follow RYGB dietary recommendations. She notes she had an EGD a few years ago which showed Nur's but that she has not been compliant with her therapy. Denies GERD, dysphagia. Bowels moving 1-2 times daily. Semi-formed or loose stools. Brown. Denies any black or bloody stools. No lightheadedness, dizziness, CP, SOB. Does note that she has to walk about 1 mile during commute for work and will have to stop 1-2 times to catch her breath though NSAIDs: none Steroids: tapering course one month ago for rash ETOH: none since Wednesday. Drank 1L vodka Wednesday, typically has 6 pack of beer 2/3 days a week Colon: none EGD: 2 years ago she notes barretts Allergies Allergy/AdvReac Type Severity Reaction Status Date / Time No Known Allergies Allergy Verified 05/04/19 20:22 Home Medications Home Medications Medication Instructions Recorded Confirmed Type acetaminophen 650 mg PO QID PRN 05/04/19 05/04/19 History alum-mag hydroxide-simeth [Maalox 30 ml PO TID PRN 05/04/19 05/04/19 History Advanced] clonidine HCl 0.1 mg PO BID PRN 05/04/19 05/04/19 History folic acid 1 mg PO DAILY 05/04/19 05/04/19 History hydroxyzine pamoate [Vistaril] 50 mg PO TID PRN 05/04/19 05/04/19 History ibuprofen 600 mg PO QID PRN 05/04/19 05/04/19 History levetiracetam [Keppra] 500 mg PO BID 05/04/19 05/04/19 History loperamide [Imodium A-D] 2 mg PO DIRECTED PRN 05/04/19 05/04/19 History magnesium hydroxide [Milk of 30 ml PO DAILY PRN 05/04/19 05/04/19 History Magnesia] melatonin 5 mg PO HS PRN 05/04/19 05/04/19 History multivitamin 1 tab PO DAILY 05/04/19 05/04/19 History naloxone 0.4 mg IM DIRECTED PRN 05/04/19 05/04/19 History promethazine 25 mg PO QID PRN 05/04/19 05/04/19 History thiamine HCl (vitamin B1) 100 mg PO DAILY 05/04/19 05/04/19 History Patient History Medical History Type 2 diabetes, diet controlled (Chronic) Barretts esophagus (Chronic) Alcoholism (Chronic) Anemia (Chronic) Surgical History History of gastric bypass (Chronic) Family History Brother Esophageal cancer Mother Diabetes Social History Preferred Language: Botswanan Communication Ability: Effective Sheep Clipper Required: No Beliefs That Will Affect Care: None Current Living Situation: Alone Feels Safe at Home: Yes Safety Concerns: Feels Safe At This Time Smoking Status: Current every day smoker Tobacco Type: cigarettes ; Cigarettes Per Day: 4 ; Hx Alcohol Use: Yes Alcohol type: beer and hard liquor Hx Substance Use: No Review of Systems Constitutional: + fatigue; no fever and no chills Respiratory: + dyspnea on exertion (with commute about 1 mile); no cough, no chest congestion and no wheezing Cardiovascular: no chest pain, no chest pain at rest, no dyspnea and no dyspnea at rest Gastrointestinal: no coffee ground emesis, no hematemesis, no dysphagia, no blood in stools and no melena Physical Exam Constitutional: WD/WN, vitals as above Neck: trachea midline Respiratory: normal respiratory effort, lungs clear to auscultation Cardiovascular: Rate/Rhythm: regular rate and regular rhythm Gastrointestinal (Abdomen): normal bowel sounds, soft, nontender, no hepatosplenomegaly Skin: no rashes, warm and dry Results & Data Vital Signs (Past 12 Hours) Vital Signs Temp Pulse Pulse Resp BP BP BP 05/05/19 12:12 36.4 C L 73 20 122/72 05/05/19 07:54 36.7 C 73 20 99/64 L 05/05/19 07:40 72 05/05/19 03:43 36.8 C 69 16 116/73 05/05/19 03:40 36.9 C 79 18 110/66 05/05/19 02:40 36.5 C 76 18 124/75 05/05/19 02:10 36.9 C 76 18 129/76 05/05/19 01:55 36.5 C 76 18 137/83 05/05/19 01:38 36.8 C 84 18 122/62 Pulse Ox 05/05/19 12:12 100 05/05/19 07:54 99 05/05/19 07:40 05/05/19 03:43 99 05/05/19 03:40 99 05/05/19 02:40 100 05/05/19 02:10 100 05/05/19 01:55 99 05/05/19 01:38 100 Laboratory Results 05/05/19 05/05/19 05/05/19 Range/Units Unknown 11:59 11:56 WBC (4.8-10.8) K/uL RBC (4.2-5.4) M/uL Hgb 8.2 L (12.0-16.0) g/dL Hct 29.4 L (37-47) % MCV (80-100) fL MCH (25-34) pg MCHC (32-36) g/dL RDW Std Deviation (36.4-46.3) fL RDW Coeff of Varinder (11.5-14.5) % Plt Count (130-400) K/uL MPV (7.4-10.4) fL Immature Gran % (Auto) % Neut % (Auto) % Lymph % (Auto) % Love % (Auto) % Eos % (Auto) % Baso % (Auto) % Reticulocyte % (Auto) (0.5-2.0) % Immature Gran # (Auto) (0.00-0.02) K/uL Neut # (Auto) (1.4-6.5) K/uL Lymph # (Auto) (1.2-3.4) K/uL Love # (Auto) (0.11-0.59) K/uL Eos # (Auto) (0-0.5) K/uL Baso # (Auto) (0-0.2) K/uL Reticulocyte # (0.02-0.10) 10^6/uL Polychromasia Hypochromasia Anisocytosis Microcytosis Ovalocytes PT (9.0-12.0) Seconds INR (0.9-1.1) APTT (21.0-31.0) Seconds PTT Ratio Sodium (136-145) mmol/L Potassium (3.5-5.1) mmol/L Chloride (98-107) mmol/L Carbon Dioxide (21-32) mmol/L Anion Gap (3-11) BUN (7-18) mg/dl Creatinine (0.6-1.2) mg/dl Est Cr Clr Drug Dosing ml/min Est GFR ( Amer) Est GFR (Non-Af Amer) BUN/Creatinine Ratio (10-20) Glucose (70-99) mg/dl POC Glucose 110 H (70-99) Estimat Average Glucose mg/dl Hemoglobin A1c (4.5-5.6) % Calcium (8.5-10.1) mg/dl Magnesium (1.8-2.4) mg/dl Iron (35-150) mcg/dl TIBC (250-450) mcg/dl Transferrin (200-360) mg/dl Ferritin (8-388) ng/ml Total Bilirubin (0.2-1) mg/dl AST (15-37) U/L ALT (12-78) U/L Alkaline Phosphatase (45-117) U/L Troponin I (0-0.045) ng/ml Total Protein (6.4-8.2) gm/dl Albumin (3.4-5.0) gm/dl Globulin (2.5-4.0) gm/dl Albumin/Globulin Ratio (0.9-2) Vitamin B12 (211-911) pg/ml Folate (>5.38) ng/ml TSH (0.300-4.500) uIu/ml HCG, Qual (Negative) Nasal Screen MRSA (PCR) Negative (Negative) Blood Type Blood Type Recheck Antibody Screen Crossmatch 05/05/19 05/05/19 05/05/19 Range/Units 07:40 06:12 06:12 WBC (4.8-10.8) K/uL RBC (4.2-5.4) M/uL Hgb (12.0-16.0) g/dL Hct (37-47) % MCV (80-100) fL MCH (25-34) pg MCHC (32-36) g/dL RDW Std Deviation (36.4-46.3) fL RDW Coeff of Varinder (11.5-14.5) % Plt Count (130-400) K/uL MPV (7.4-10.4) fL Immature Gran % (Auto) % Neut % (Auto) % Lymph % (Auto) % Love % (Auto) % Eos % (Auto) % Baso % (Auto) % Reticulocyte % (Auto) (0.5-2.0) % Immature Gran # (Auto) (0.00-0.02) K/uL Neut # (Auto) (1.4-6.5) K/uL Lymph # (Auto) (1.2-3.4) K/uL Love # (Auto) (0.11-0.59) K/uL Eos # (Auto) (0-0.5) K/uL Baso # (Auto) (0-0.2) K/uL Reticulocyte # (0.02-0.10) 10^6/uL Polychromasia Hypochromasia Anisocytosis Microcytosis Ovalocytes PT (9.0-12.0) Seconds INR (0.9-1.1) APTT (21.0-31.0) Seconds PTT Ratio Sodium 141 (136-145) mmol/L Potassium 3.5 (3.5-5.1) mmol/L Chloride 110 H (98-107) mmol/L Carbon Dioxide 25 (21-32) mmol/L Anion Gap 6.0 (3-11) BUN 9 (7-18) mg/dl Creatinine 0.59 L (0.6-1.2) mg/dl Est Cr Clr Drug Dosing 133.5 ml/min Est GFR ( Amer) 126.5 Est GFR (Non-Af Amer) 109.1 BUN/Creatinine Ratio 15.2 (10-20) Glucose 90 (70-99) mg/dl POC Glucose 114 H (70-99) Estimat Average Glucose mg/dl Hemoglobin A1c (4.5-5.6) % Calcium 8.3 L (8.5-10.1) mg/dl Magnesium (1.8-2.4) mg/dl Iron 17 L (35-150) mcg/dl TIBC 449 (250-450) mcg/dl Transferrin 347 (200-360) mg/dl Ferritin 1.9 L (8-388) ng/ml Total Bilirubin (0.2-1) mg/dl AST (15-37) U/L ALT (12-78) U/L Alkaline Phosphatase (45-117) U/L Troponin I (0-0.045) ng/ml Total Protein (6.4-8.2) gm/dl Albumin (3.4-5.0) gm/dl Globulin (2.5-4.0) gm/dl Albumin/Globulin Ratio (0.9-2) Vitamin B12 547 (211-911) pg/ml Folate 8.30 (>5.38) ng/ml TSH (0.300-4.500) uIu/ml HCG, Qual (Negative) Nasal Screen MRSA (PCR) (Negative) Blood Type Blood Type Recheck Antibody Screen Crossmatch 05/05/19 05/05/19 05/05/19 Range/Units 06:12 00:31 00:19 WBC 5.67 (4.8-10.8) K/uL RBC 4.26 (4.2-5.4) M/uL Hgb 8.0 L (12.0-16.0) g/dL Hct 28.8 L (37-47) % MCV 67.6 L (80-100) fL MCH 18.8 L (25-34) pg MCHC 27.8 L (32-36) g/dL RDW Std Deviation 46.5 H (36.4-46.3) fL RDW Coeff of Varinder 18.9 H (11.5-14.5) % Plt Count 247 (130-400) K/uL MPV 9.0 (7.4-10.4) fL Immature Gran % (Auto) 0.2 % Neut % (Auto) 52.2 % Lymph % (Auto) 32.5 % Love % (Auto) 10.1 % Eos % (Auto) 3.9 % Baso % (Auto) 1.1 % Reticulocyte % (Auto) 1.7 (0.5-2.0) % Immature Gran # (Auto) 0.01 (0.00-0.02) K/uL Neut # (Auto) 2.97 (1.4-6.5) K/uL Lymph # (Auto) 1.84 (1.2-3.4) K/uL Love # (Auto) 0.57 (0.11-0.59) K/uL Eos # (Auto) 0.22 (0-0.5) K/uL Baso # (Auto) 0.06 (0-0.2) K/uL Reticulocyte # 0.07 (0.02-0.10) 10^6/uL Polychromasia Hypochromasia Present Anisocytosis Microcytosis Present Ovalocytes 2+ PT (9.0-12.0) Seconds INR (0.9-1.1) APTT (21.0-31.0) Seconds PTT Ratio Sodium (136-145) mmol/L Potassium (3.5-5.1) mmol/L Chloride (98-107) mmol/L Carbon Dioxide (21-32) mmol/L Anion Gap (3-11) BUN (7-18) mg/dl Creatinine (0.6-1.2) mg/dl Est Cr Clr Drug Dosing ml/min Est GFR ( Amer) Est GFR (Non-Af Amer) BUN/Creatinine Ratio (10-20) Glucose (70-99) mg/dl POC Glucose 110 H (70-99) Estimat Average Glucose mg/dl Hemoglobin A1c (4.5-5.6) % Calcium (8.5-10.1) mg/dl Magnesium (1.8-2.4) mg/dl Iron (35-150) mcg/dl TIBC (250-450) mcg/dl Transferrin (200-360) mg/dl Ferritin (8-388) ng/ml Total Bilirubin (0.2-1) mg/dl AST (15-37) U/L ALT (12-78) U/L Alkaline Phosphatase (45-117) U/L Troponin I (0-0.045) ng/ml Total Protein (6.4-8.2) gm/dl Albumin (3.4-5.0) gm/dl Globulin (2.5-4.0) gm/dl Albumin/Globulin Ratio (0.9-2) Vitamin B12 (211-911) pg/ml Folate (>5.38) ng/ml TSH (0.300-4.500) uIu/ml HCG, Qual (Negative) Nasal Screen MRSA (PCR) (Negative) Blood Type Blood Type Recheck O Negative Antibody Screen Crossmatch 05/04/19 05/04/19 05/04/19 Range/Units 22:24 19:51 19:51 WBC (4.8-10.8) K/uL RBC (4.2-5.4) M/uL Hgb 7.0 L (12.0-16.0) g/dL Hct 26.6 L (37-47) % MCV (80-100) fL MCH (25-34) pg MCHC (32-36) g/dL RDW Std Deviation (36.4-46.3) fL RDW Coeff of Varinder (11.5-14.5) % Plt Count (130-400) K/uL MPV (7.4-10.4) fL Immature Gran % (Auto) % Neut % (Auto) % Lymph % (Auto) % Love % (Auto) % Eos % (Auto) % Baso % (Auto) % Reticulocyte % (Auto) (0.5-2.0) % Immature Gran # (Auto) (0.00-0.02) K/uL Neut # (Auto) (1.4-6.5) K/uL Lymph # (Auto) (1.2-3.4) K/uL Love # (Auto) (0.11-0.59) K/uL Eos # (Auto) (0-0.5) K/uL Baso # (Auto) (0-0.2) K/uL Reticulocyte # (0.02-0.10) 10^6/uL Polychromasia Hypochromasia Anisocytosis Microcytosis Ovalocytes PT (9.0-12.0) Seconds INR (0.9-1.1) APTT (21.0-31.0) Seconds PTT Ratio Sodium (136-145) mmol/L Potassium (3.5-5.1) mmol/L Chloride (98-107) mmol/L Carbon Dioxide (21-32) mmol/L Anion Gap (3-11) BUN (7-18) mg/dl Creatinine (0.6-1.2) mg/dl Est Cr Clr Drug Dosing ml/min Est GFR ( Amer) Est GFR (Non-Af Amer) BUN/Creatinine Ratio (10-20) Glucose (70-99) mg/dl POC Glucose (70-99) Estimat Average Glucose 117 mg/dl Hemoglobin A1c 5.7 H (4.5-5.6) % Calcium (8.5-10.1) mg/dl Magnesium 2.2 (1.8-2.4) mg/dl Iron (35-150) mcg/dl TIBC (250-450) mcg/dl Transferrin (200-360) mg/dl Ferritin (8-388) ng/ml Total Bilirubin (0.2-1) mg/dl AST (15-37) U/L ALT (12-78) U/L Alkaline Phosphatase (45-117) U/L Troponin I (0-0.045) ng/ml Total Protein (6.4-8.2) gm/dl Albumin (3.4-5.0) gm/dl Globulin (2.5-4.0) gm/dl Albumin/Globulin Ratio (0.9-2) Vitamin B12 (211-911) pg/ml Folate (>5.38) ng/ml TSH 1.170 (0.300-4.500) uIu/ml HCG, Qual (Negative) Nasal Screen MRSA (PCR) (Negative) Blood Type Blood Type Recheck Antibody Screen Crossmatch 05/04/19 05/04/19 05/04/19 Range/Units 19:51 19:51 19:51 WBC 7.41 (4.8-10.8) K/uL RBC 4.32 (4.2-5.4) M/uL Hgb 7.8 L (12.0-16.0) g/dL Hct 28.8 L (37-47) % MCV 66.7 L (80-100) fL MCH 18.1 L (25-34) pg MCHC 27.1 L (32-36) g/dL RDW Std Deviation 43.3 (36.4-46.3) fL RDW Coeff of Varinder 17.9 H (11.5-14.5) % Plt Count 284 (130-400) K/uL MPV 8.3 (7.4-10.4) fL Immature Gran % (Auto) 0.3 % Neut % (Auto) 61.5 % Lymph % (Auto) 28.5 % Love % (Auto) 6.1 % Eos % (Auto) 2.4 % Baso % (Auto) 1.2 % Reticulocyte % (Auto) (0.5-2.0) % Immature Gran # (Auto) 0.02 (0.00-0.02) K/uL Neut # (Auto) 4.56 (1.4-6.5) K/uL Lymph # (Auto) 2.11 (1.2-3.4) K/uL Love # (Auto) 0.45 (0.11-0.59) K/uL Eos # (Auto) 0.18 (0-0.5) K/uL Baso # (Auto) 0.09 (0-0.2) K/uL Reticulocyte # (0.02-0.10) 10^6/uL Polychromasia 1+ Hypochromasia Present Anisocytosis Present Microcytosis Present Ovalocytes 1+ PT 10.0 (9.0-12.0) Seconds INR 1.0 (0.9-1.1) APTT 21.9 (21.0-31.0) Seconds PTT Ratio 0.8 Sodium (136-145) mmol/L Potassium (3.5-5.1) mmol/L Chloride (98-107) mmol/L Carbon Dioxide (21-32) mmol/L Anion Gap (3-11) BUN (7-18) mg/dl Creatinine (0.6-1.2) mg/dl Est Cr Clr Drug Dosing ml/min Est GFR ( Amer) Est GFR (Non-Af Amer) BUN/Creatinine Ratio (10-20) Glucose (70-99) mg/dl POC Glucose (70-99) Estimat Average Glucose mg/dl Hemoglobin A1c (4.5-5.6) % Calcium (8.5-10.1) mg/dl Magnesium (1.8-2.4) mg/dl Iron (35-150) mcg/dl TIBC (250-450) mcg/dl Transferrin (200-360) mg/dl Ferritin (8-388) ng/ml Total Bilirubin (0.2-1) mg/dl AST (15-37) U/L ALT (12-78) U/L Alkaline Phosphatase (45-117) U/L Troponin I (0-0.045) ng/ml Total Protein (6.4-8.2) gm/dl Albumin (3.4-5.0) gm/dl Globulin (2.5-4.0) gm/dl Albumin/Globulin Ratio (0.9-2) Vitamin B12 (211-911) pg/ml Folate (>5.38) ng/ml TSH (0.300-4.500) uIu/ml HCG, Qual (Negative) Nasal Screen MRSA (PCR) (Negative) Blood Type O Negative Blood Type Recheck Antibody Screen NEGATIVE Crossmatch See Detail 05/04/19 05/04/19 Range/Units 19:51 19:51 WBC (4.8-10.8) K/uL RBC (4.2-5.4) M/uL Hgb (12.0-16.0) g/dL Hct (37-47) % MCV (80-100) fL MCH (25-34) pg MCHC (32-36) g/dL RDW Std Deviation (36.4-46.3) fL RDW Coeff of Varinder (11.5-14.5) % Plt Count (130-400) K/uL MPV (7.4-10.4) fL Immature Gran % (Auto) % Neut % (Auto) % Lymph % (Auto) % Love % (Auto) % Eos % (Auto) % Baso % (Auto) % Reticulocyte % (Auto) (0.5-2.0) % Immature Gran # (Auto) (0.00-0.02) K/uL Neut # (Auto) (1.4-6.5) K/uL Lymph # (Auto) (1.2-3.4) K/uL Love # (Auto) (0.11-0.59) K/uL Eos # (Auto) (0-0.5) K/uL Baso # (Auto) (0-0.2) K/uL Reticulocyte # (0.02-0.10) 10^6/uL Polychromasia Hypochromasia Anisocytosis Microcytosis Ovalocytes PT (9.0-12.0) Seconds INR (0.9-1.1) APTT (21.0-31.0) Seconds PTT Ratio Sodium 140 (136-145) mmol/L Potassium 3.9 (3.5-5.1) mmol/L Chloride 109 H (98-107) mmol/L Carbon Dioxide 26 (21-32) mmol/L Anion Gap 5.0 (3-11) BUN 12 (7-18) mg/dl Creatinine 0.70 (0.6-1.2) mg/dl Est Cr Clr Drug Dosing 112.9 ml/min Est GFR ( Amer) 119.6 Est GFR (Non-Af Amer) 103.2 BUN/Creatinine Ratio 17.1 (10-20) Glucose 125 H (70-99) mg/dl POC Glucose (70-99) Estimat Average Glucose mg/dl Hemoglobin A1c (4.5-5.6) % Calcium 8.8 (8.5-10.1) mg/dl Magnesium (1.8-2.4) mg/dl Iron (35-150) mcg/dl TIBC (250-450) mcg/dl Transferrin (200-360) mg/dl Ferritin (8-388) ng/ml Total Bilirubin 0.8 (0.2-1) mg/dl AST 25 (15-37) U/L ALT 25 (12-78) U/L Alkaline Phosphatase 84 (45-117) U/L Troponin I < 0.015 (0-0.045) ng/ml Total Protein 8.0 (6.4-8.2) gm/dl Albumin 3.9 (3.4-5.0) gm/dl Globulin 4.1 H (2.5-4.0) gm/dl Albumin/Globulin Ratio 0.9 (0.9-2) Vitamin B12 (211-911) pg/ml Folate (>5.38) ng/ml TSH (0.300-4.500) uIu/ml HCG, Qual Negative (Negative) Nasal Screen MRSA (PCR) (Negative) Blood Type Blood Type Recheck Antibody Screen Crossmatch
[2019-05-05 19:05] LABS: Hematocrit (blood only) 30.9 % (37-47); Hemoglobin 8.7 g/dL (12.0-16.0)
[2019-05-05] MEDS ORDERED: LISINOPRIL 2.5 MG TAB PO SCH (21:00)
[2019-05-06] MEDS: MULTIVITAMIN TAB PO SCH (08:53)
[2019-05-06] MEDS: THIAMINE HCL 100 MG TAB PO SCH (08:53)
[2019-05-06] MEDS: PANTOprazole 40 MG TAB PO SCH (08:53)
[2019-05-06] MEDS: FERROUS SULFATE 325 MG TAB PO SCH ×2 (08:54→16:41)
[2019-05-06] MEDS: levETIRAcetam 500 MG TAB PO SCH (08:54)
[2019-05-06] MEDS: INSULIN ASPART 100 UNITS/ML 3 ML PEN SC SCH ×3 (08:57→18:12)
[2019-05-06 08:59] LABS: Hematocrit (blood only) 32.6 % (37-47); Hemoglobin 9.2 g/dL (12.0-16.0)
[2019-05-06] MEDS: FOLIC ACID 1 MG TAB PO SCH (10:01)
--- NOTE | 2019-05-06 13:56 | Hospitalist Progress Note ---
Date of Service May 06, 2019 Assessment & Plan (1) Anemia: Symptomatic anemia possible Upper GI Bleed, history of gastric bypass Menorrhagia Iron Deficiency Hg 7.0 on admission s/p 2 units pRBC given, Hg increased to 9.2 symptoms resolved Pantoprazole 40mg BID started, GI consulted, recommend: daily Protonix ff up with GI in [place] for outpatient EGD/Colonoscopy ff up with GI Commercial Agent will need referral for outpatient Childcare Provider ff up, re: menorrhagia Fe 17, Ferrous gluconate started, follow up level as outpatient other studies: echo- EF 65-70%, borderline concentric LVH, left atrium mildly dilated Hypertension, elevated secondary to anxiety improved continue Lisinopril monitor Alcohol abuse continue Keppra alcohol withdrawal seizure prophylaxis initiated at [facility] taper down as outpatient Ongoing tobacco abuse counseled on cessation Pre-DM A1c 5.7 dietary changes monitor as outpatient DVT prophylaxis. SCDs RE occult GI bleed Disposition d/c home today ff up with PCP in 1 week ff up with GI in 1 week ff up with GI Commercial Agent in 1-2 weeks ff up with Help Desk Supervisor in 1-2 weeks Subjective ff up for symptomatic anemia seen resting in bed, comfortable in good spirits states she feels much better overall ambulating in the room with no problems denies dizziness, weakness, shortness of breath, chest pain denies any other symptoms states she is ready for discharge today Review of Systems Review of Systems: All systems reviewed & are unremarkable except as noted in HPI & below Physical Exam Physical Exam: General- oriented x 3, not in distress, speaks in sentences with no effort or accessory muscle use Eyes- anicteric Neck- no JVD Lungs- clear BS BL no rales/wheezes Heart- normal rate, regular rhythm; no murmurs Abdomen- normal bowel sounds, nondistended, soft, nontender Extremities- no pretibial edema, no calf tenderness Neuro- alert, oriented x 3; no gross focal neurologic deficits Skin- warm & dry Results & Data Vital Signs (Past 12 Hours) Vital Signs Temp Pulse Resp BP Pulse Ox 05/06/19 07:11 37.0 C 62 20 146/83 H 100 05/06/19 04:31 36.6 C 62 18 115/73 97 Laboratory Results Laboratory Results - last 24 hr 05/04/19 05/05/19 05/05/19 19:51 16:37 18:54 Hgb 8.7 L Hct 30.9 L POC Glucose 107 H Blood Type O Negative Antibody Screen NEGATIVE Crossmatch See Detail 05/05/19 05/06/19 05/06/19 19:56 07:37 08:09 Hgb 9.2 L Hct 32.6 L POC Glucose 137 H 111 H Blood Type Antibody Screen Crossmatch 05/06/19 11:47 Hgb Hct POC Glucose 86 Blood Type Antibody Screen Crossmatch
--- NOTE | 2019-05-06 14:24 | Discharge Summary ---
Date of Service May 06, 2019 Admission HPI Per Admitting Provider 49-year-old female who was sent to the ED for evaluation of abnormal labs. Patient is currently at [facility] for alcohol dependence. Patient arrived there on 04/30. She had routine labs drawn today to demonstrate anemia and she was sent to the ED. Patient reports that for the past several months, she has noted some exertional shortness of breath and lightheadedness however she attributed this to her chronic alcohol use. No chest pain or syncopal events. Patient reports she has frequent vomiting due to history of gastric bypass and that she eats too much food too quickly. She reports she has vomiting at least 2 times a week. She denies any hematemesis or coffee-ground emesis. No abdominal pain. She denies diarrhea, bright red bleeding per rectum, dark tarry stools. Patient reports a history of chronic anemia due to heavy menses, she is unsure of her baseline hemoglobin. She has been on iron pills in the past. No other recent illnesses, fevers, chills. She denies any urinary symptoms. Patient reports a history of Nur's esophagus on EGD from 2015. She denies heavy NSAID use. In the ED, Hgb is found to be 7.8 and rectal exam reveals guaiac positive stools. Patient is hemodynamically stable. Admission Exam Per Admitting Provider Constitutional: WD/WN, vitals as above Eyes: PERRL, conjunctivae normal, anicteric sclerae ENMT: external ear and nose normal, oropharynx normal Respiratory: normal respiratory effort, lungs clear to auscultation Cardiovascular: Rate/Rhythm: regular rate and regular rhythm Vessels: normal peripheral pulses Extremities: no edema Gastrointestinal (Abdomen): normal bowel sounds, soft, nontender, no hepatosplenomegaly Musculoskeletal: no cyanosis or clubbing, extremities motor strength 5/5 Skin: no rashes, warm and dry Neurologic: PERRL, EOMI, accommodation nl, no face palsy, no dysarthria Psychiatric: Orientation: alert and oriented x 3 Affect: + tearful affect Principal Diagnosis SYMPTOMATIC ANEMIA, IRON DEFICIENCY, POSSIBLE SOURCES: MENORRHAGIA, GI BLEED Discharge Exam General- oriented x 3, not in distress, speaks in sentences with no effort or accessory muscle use Eyes- anicteric Neck- no JVD Lungs- clear BS BL no rales/wheezes Heart- normal rate, regular rhythm; no murmurs Abdomen- normal bowel sounds, nondistended, soft, nontender Extremities- no pretibial edema, no calf tenderness Neuro- alert, oriented x 3; no gross focal neurologic deficits Skin- warm & dry Discharge Data Allergies Allergy/AdvReac Type Severity Reaction Status Date / Time No Known Allergies Allergy Verified 05/04/19 20:22 Consultations 05/04/19 20:53 ED Decision to Admit Stat 05/04/19 23:58 Consult Health Information Management Routine 05/05/19 13:08 Consult Gastroenterology Routine Procedures Performed CHEST XRAY: XR chest 1V portable CLINICAL HISTORY: 49 years-old Female presenting with sob, abnormal labs, eval for pna. TECHNIQUE: Portable upright AP view of the chest was obtained. COMPARISON: None. FINDINGS: Cardiac silhouette top normal in size. Elevation of the right hemidiaphragm. No focal opacity. Trace blunting of the right costophrenic angle. No large effusion or pneumothorax. Osseous structures normal. Upper abdomen normal. IMPRESSION: 1. Blunting of the right costophrenic angle. A trace right pleural effusion cannot be excluded. Otherwise no acute cardiopulmonary disease. PA and lateral views could be considered for further assessment if there is concern. Hospital Course (1) Anemia: Symptomatic anemia possible Upper GI Bleed, history of gastric bypass Menorrhagia Iron Deficiency Hg 7.0 on admission s/p 2 units pRBC given, Hg increased to 9.2 symptoms resolved monitor CBC as outpatient Pantoprazole 40mg BID started GI consulted, recommendation: daily Protonix ff up with GI in [place] for outpatient EGD/Colonoscopy ff up with GI Pulp Operator will need referral for outpatient Benefits Representative ff up, re: menorrhagia Fe 17, Ferrous gluconate started, follow up level as outpatient other studies: echo- EF 65-70%, borderline concentric LVH, left atrium mildly dilated Hypertension, elevated secondary to anxiety improved continue Lisinopril monitor Alcohol abuse continue Keppra alcohol withdrawal seizure prophylaxis initiated at [facility] taper down as prescribed, BIX 2 days, then daily x 7 days counseled on cessation Ongoing tobacco abuse counseled on cessation Pre-DM A1c 5.7 dietary changes monitor as outpatient Abnormal Chest Xray "Blunting of the right costophrenic angle. A trace right pleural effusion cannot be excluded. Otherwise no acute cardiopulmonary disease. PA and lateral views could be considered for further assessment if there is concern." -- repeat CXR on ff up with PCP as outpatient Disposition d/c home ff up with PCP in 1 week ff up with GI in 1 week ff up with GI Pulp Operator in 1-2 weeks ff up with Ingredient Scaler in 1-2 weeks Total Time Total Time Spent Total Time Spent (In Minutes): 50 minutes Discharge Plan Discharge Items Patient Disposition: Home - Self-Care Reason For Visit: SYMPTOMATIC ANEMIA Discharge Diagnosis: ANEMIA, IRON DEFICIENCY Discharge Goals: Diagnostic testing and Therapeutic intervention Activity: As commented below Activity Comment: RESUME ACTVIVITY GRADUALLY TOLERATED; NO HEAVY EXERTION Lifting: Wait until after follow-up appointment Exercise/Sports: Wait until after follow-up appointment Driving/Machine Use Comment: NO DRIVING UNTIL ALLOWED BY PRIMARY CARE PHYSICIAN Non-emergency contact: Primary Care Provider and Biomass Plant Technician Call non-emergency contact if: you have any medication questions, your symptoms worsen and you have a fever Follow-up/Referrals: Edie Davila MD [Primary Care Provider] - Diet: Heart Healthy Addtl Provider Instructions: PLEASE FOLLOW UP WITH YOUR PRIMARY CARE PHYSICIAN AND AIRLINE STATION AGENT IN 1 WEEK. ALSO, RE-ESTABLISH CARE WITH THE GI TIMBER INCISOR OPERATOR. FOLLOW UP WITH DRAWING IN HAND IN 1-2 WEEKS. CALL PRIMARY CARE PHYSICIAN OR RETURN TO THE ER IMMEDIATELY IF WITH RECURRENCE/WORSENING OF SYMPTOMS, ABDOMINAL PAIN, NAUSEA/VOMITING, BLACK OR BLOODY STOOLS, SHORTNESS OF BREATH, DIZZINESS, WEAKNESS. NO ALCOHOL/SMOKING. PLEASE REVIEW YOUR NEW MEDICATION LIST BELOW AND FOLLOW INSTRUCTIONS CAREFULLY. Prescriptions: New ferrous sulfate 325 mg (65 mg iron) Tablet,Delayed Release (Dr/Ec) 325 mg PO BIDM 30 Days Qty: 60 RF: 2 lisinopril 2.5 mg Tablet 2.5 mg PO HS 30 Days Qty: 30 RF: 2 pantoprazole 40 mg Tablet,Delayed Release (Dr/Ec) 40 mg PO DAILY 30 Days Qty: 30 RF: 1 levetiracetam [Keppra] 500 mg Tablet 500 mg PO UD 9 Days Qty: 11 RF: 0 Continued acetaminophen 325 mg Tablet 650 mg PO QID PRN (Reason: LOS) RF: 0 multivitamin Tablet 1 tab PO DAILY 30 Days Qty: 30 RF: 2 thiamine HCl (vitamin B1) 100 mg Tablet 100 mg PO DAILY 10 Days Qty: 10 RF: 0 folic acid 1 mg Tablet 1 mg PO DAILY 10 Days Qty: 10 RF: 0 Discontinued clonidine HCl 0.1 mg Tablet 0.1 mg PO BID PRN (Reason: Unknown) RF: 0 loperamide [Imodium A-D] 2 mg Tablet 2 mg PO DIRECTED PRN (Reason: Diarrhea) RF: 0 hydroxyzine pamoate [Vistaril] 50 mg Capsule 50 mg PO TID PRN (Reason: Anxiety) RF: 0 magnesium hydroxide [Milk of Magnesia] 400 mg/5 mL Suspension 30 ml PO DAILY PRN (Reason: LOS) RF: 0 promethazine 25 mg Tablet 25 mg PO QID PRN (Reason: Nausea And Vomiting) RF: 0 alum-mag hydroxide-simeth [Maalox Advanced] 200-200-20 mg/5 mL Suspension 30 ml PO TID PRN (Reason: LOS) RF: 0 ibuprofen 600 mg Tablet 600 mg PO QID PRN (Reason: LOS) RF: 0 naloxone 0.4 mg/mL Syringe 0.4 mg IM DIRECTED PRN (Reason: Sedation) RF: 0 melatonin 5 mg Tablet 5 mg PO HS PRN (Reason: Sleep) RF: 0 Stand-Alone Forms: [facility] Discharge Orders: Discharge Order (Routine); Ordered 05/06/19 Ordered By: Jagdish Dowd Admission Data Admit Date/Time: 05/04/19 22:39 Attending Provider: Jagdish Dowd Admit Provider: Momo Kc Primary Care Provider: Edie Davila Other Providers: Momo Kc ; Graham Kyle Service: Telemetry Medical
== END 2019-05-06 19:00 | disposition home or self-care (01) | DRG 812 ==
LOC: ED 19:01 → 2N 22:39